=== PATIENT | male | born 2000 | race Caucasian/White ===

== ENCOUNTER 2022-01-15 16:48 | Outpatient (CLI) | payer OTHER, SELFPAY ==
[2022-01-15 23:03] LABS: Chlamydia DNA Amplified* NOT DETECTED (No Detected); GC DNA Amplified* NOT DETECTED (No Detected)
== END 2022-01-15 16:49 | disposition home or self-care (01) ==
LOC: LKVREF 16:48
PROVIDERS: Visit Provider Nurse Practitioner Family
DX: Z11.3 Encounter for screening for infections with a predominantly sexual mode of transmission (principal); A64 Unspecified sexually transmitted disease
CPT/HCPCS: 87491; 87591